=== PATIENT | male | born 1980 | race Two or more races ===

== ENCOUNTER 2022-09-05 20:16 | Emergency (ER) | payer BC ==
[~2022-09-05] VITALS: Ht 172.7 cm; Wt 90.7 kg
--- NOTE | 2022-09-05 21:09 | NUR ---
Dr. Ellison in room [facility] patient. MSE in progress.
[2022-09-05 21:32] LABS: HEMATOCRIT 43.9 % (36.7-47.1); MEAN CORPUSCULAR HEMOGLOBIN 32.1 uug (23.8-33.4); MEAN CORPUSCULAR VOLUME 94.6 fL (73.0-96.2); PLATELET COUNT (AUTO) 262 K/uL (152-348)
[2022-09-05 21:45] LABS: CREATININE 0.8 mg/dL (0.6-1.3); POTASSIUM 3.8 mmol/L (3.5-5.1)
[2022-09-05] MEDS ORDERED: HYDR-3980 PO (23:13)
[2022-09-05 23:26] VITALS: BP 130/77
--- NOTE | 2022-09-05 23:26 | NUR ---
Patient discharged to home in stable condition. Written and verbal after care instructions given. Patient verbalizes understanding of instructions. Stressed follow up or return to ER for worsening s/s. Patient is a/ox4, NAD noted. patient ambulated with steady gait
== END 2022-09-05 23:27 | disposition home or self-care (01) ==
LOC: ER 20:16
DX: M25.562 Pain in left knee (principal); R60.0 Localized edema; I10 Essential (primary) hypertension; I25.2 Old myocardial infarction; E78.5 Hyperlipidemia, unspecified; F17.210 Nicotine dependence, cigarettes, uncomplicated; Z79.899 Other long term (current) drug therapy
CPT/HCPCS: 36415; 85025; A4663

== ENCOUNTER 2022-10-04 09:10 | Emergency (ER) | payer SELFPAY ==
[~2022-10-04] VITALS: Ht 172.7 cm; Wt 92.1 kg
[~2022-10-04 09:10] MED LIST: HYDR-3980 PO
[2022-10-04] MEDS ORDERED: DEXAMETHASONE SOD PHOSPHATE 4 MG INJ IM ONE (09:45)
[2022-10-04] MEDS ORDERED: KETOROLAC TROMETHAMINE 15 MG INJ IM ONE (09:45)
--- NOTE | 2022-10-04 09:46 | NUR ---
42 years old male walking to er c/o sore throat since last Monday, no swelling, no redness, no fever, no cough.
[2022-10-04] MEDS ORDERED: DEXAMETHASONE SOD PHOSPHATE 10 MG INJ ONE (09:48)
[2022-10-04] MEDS ORDERED: KETOROLAC TROMETHAMINE 15 MG INJ ONE (09:48)
[2022-10-04] MEDS ORDERED: AMOX-430 PO (10:09)
[2022-10-04] MEDS ORDERED: IBUP-1955 PO (10:09)
--- NOTE | 2022-10-04 10:25 | NUR ---
patient reassess condition stable d/c home with instructions after care reviewed understood left er via self ambulatory with steady gait.
[2022-10-04 10:26] VITALS: BP 130/80; TEMP 97.7; O2SAT 100
== END 2022-10-04 10:36 | disposition home or self-care (01) ==
LOC: ER 09:10
DX: J02.9 Acute pharyngitis, unspecified (principal); E78.5 Hyperlipidemia, unspecified; I25.10 Atherosclerotic heart disease of native coronary artery without angina pectoris; I25.2 Old myocardial infarction; F17.210 Nicotine dependence, cigarettes, uncomplicated; Z79.899 Other long term (current) drug therapy
CPT/HCPCS: 99284; 86403; 96372 ×2; J1100; J1885; A4663